=== PATIENT | male | born 1970 | race Two or more races ===

== ENCOUNTER 2022-04-23 16:58 | Emergency (ER) | payer OTHER ==
[2022-04-23 17:36] VITALS: BP 153/97; PULSE 94; RESP 18; TEMP 98.1; BMI 31.2
== END 2022-04-23 18:45 | disposition home or self-care (01) ==
LOC: FER 16:58
DX: T59.91XA Toxic effect of unspecified gases, fumes and vapors, accidental (unintentional), initial encounter (principal)
CPT/HCPCS: 99281-25